=== PATIENT | male | born 1995 | race African-American/Black ===

== ENCOUNTER 2017-01-11 10:04 | Emergency (ER) | payer OTHER ==
[~2017-01-11] VITALS: Ht 182.9 cm; Wt 69.4 kg
[2017-01-11] MEDS ORDERED: ALBUTEROL SULF8.5 GM INH (10:27)
[2017-01-11] MEDS ORDERED: ZOFRAN ODT4 MG ORAL (10:27)
[2017-01-11] MEDS ORDERED: ROBITUSSIN COU237 M1 PO (10:27)
--- NOTE | 2017-01-11 10:30 | Emergency Room Report ---
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 Patient had asthma as a child however has not had any problems since then Denies any recent travel denies any new any conditions Patient had increased cough with some phlegm production Denies any pleurisy Denies any fevers denies any neck pain or photophobia Patient also stated that since the cough started he had some mid epigastric abdominal discomfort as well A gurgling sensation Loose stool Denies any active pain at this time Allergies: Coded Allergies: No Known Allergies (Unverified , 01/11/17) Patient History Past Medical History: see triage record Pertinent Family History: none Reviewed Nursing Documentation: PMH: Agreed, PSxH: Agreed Nursing Documentation-PMH Past Medical History: No History, Except For Hx Asthma: Yes Review of Systems All Other Systems: negative except mentioned in HPI Physical Exam Vital Signs Date Time Temp Pulse Resp B/P (MAP) Pulse Ox O2 Delivery O2 Flow Rate FiO2 01/11/17 10:09 97.5 64 19 141/82 100 Room Air Sp02 EP Interpretation: reviewed, normal General Appearance: well appearing, no apparent distress Head: normocephalic, atraumatic Eyes: bilateral eye PERRL, bilateral eye EOMI ENT: hearing grossly normal, normal pharynx, TMs + canals normal, uvula midline Neck: full range of motion, supple, no meningismus, no bony tend Respiratory: lungs clear, normal breath sounds, no rhonchi, no respiratory distress, no retraction, no accessory muscle use Cardiovascular #1: normal peripheral pulses, regular rate, rhythm, no edema, no gallop, no JVD, no murmur Gastrointestinal: normal bowel sounds, non tender, soft, no mass, no organomegaly, non-distended, no guarding, no hernia, no pulsatile mass, no rebound Genitourinary: no CVA tenderness Musculoskeletal: normal inspection Neurologic: oriented x3, responsive, open hearth helper III-XII nml as tested, motor strength/ tone normal, sensory intact Psychiatric: mood/affect normal Skin: normal color, no rash, warm/dry, palpation normal Lymphatic: normal inspection, no adenopathy Medical Decision Making Diagnostic Impression: Primary Impression: uri Additional Impression: abdominal pain ER Course Multiple differentials considered Patient's initial clinical complaints and symptoms appear to be in line with viral URI With the abdominal discomfort Does not sound to be significant at this time Potential foodborne pathology Versus other differentials such as appendicitis are considered Abdomen is soft at this time And the patient will have close followup Last Vital Signs Date Time Temp Pulse Resp B/P (MAP) Pulse Ox O2 Delivery O2 Flow Rate FiO2 01/11/17 10:09 97.5 64 19 141/82 100 Room Air Status: unchanged Disposition: HOME, SELF-CARE Condition: Stable Scripts Guaifenesin/Dextromethorphan (ROBITUSSIN COUGH-CHEST DM LIQ) 237 Ml Liquid 10 ML PO QHS for 5 Days, ML Prov: KATIANA SULTANA D.O. 01/11/17 Albuterol Sulfate* (ALBUTEROL SULFATE MDI*) 8.5 Gm Hfa.aer.ad 2 PUFF INH Q6H, #1 EA 0 Refills Prov: KATIANA SULTANA D.O. 01/11/17 Ondansetron Odt* (ZOFRAN ODT*) 4 Mg Tab.rapdis 4 MG ORAL Q6H Y for Nausea & Vomiting, #10 TAB 0 Refills Prov: KATIANA SULTANA D.O. 01/11/17 Patient Instructions: Upper Respiratory Infection, Adult, Abdominal Pain, Adult , [id number], Cough, Adult Additional Instructions: Patient is provided with the discharge instructions notified to follow up with primary doctor in the next 2-3 days otherwise return to the er with any worsening symptoms. Please note that this report is being documented using [employer] technology. This can lead to erroneous entry secondary to incorrect interpretation by the dictating instrument. KATIANA SULTANA D.O. Jan 11, 2017 10:29
[2017-01-11 11:09] VITALS: BP 126/86
== END 2017-01-11 11:10 | disposition home or self-care (01) ==
LOC: EMR 10:44
DX: J06.9 Acute upper respiratory infection, unspecified (principal); R10.9 Unspecified abdominal pain; J45.909 Unspecified asthma, uncomplicated
CPT/HCPCS: 99284